=== PATIENT | male | born 1945 | race Caucasian/White ===

== ENCOUNTER → 2018-05-01 | Outpatient (CLI) | payer MEDICARE, OTHER ==
[~2018-05-01] MED LIST: ASPI81CH PO; BENZ100A PO; CIPR500 PO; DEXL60CA3 PO; FINA5 PO; FURO20 PO; HYDMOR2 PO; HYDMOR4 PO; LISI5 PO; LISINOPRIL TAB 10M; Lasix40 MG PO; METF500 PO; METO50 PO; METOPROLOL; METPRE4DP PO; Norco 10-325 T1 EACH PO; ONDA8 PO; OXYB5; SIMV40 PO; Simvastatin40 MG; TAMS.4ER PO; TERA5 PO; Ultram50 MG PO; Zofran Odt4 MG SL; [UNRECOGNIZED DRUG - OTHER]
[2018-05-01 10:17] LABS: Source, Urine Clean Catch
[2018-05-01 12:28] LABS: Bilirubin, Urine Neg (Neg); Blood, Urine 4+ (Neg); Glucose Qualitative, Urine Neg (Neg); Ketones, Urine Neg (Neg); Leukocyte Esterase, Urine 3+ (Neg); Nitrite, Urine Neg (Neg); Protein, Urine 3+ (Neg); Urobilinogen, Urine NORM (Normal)
[2018-05-01 13:10] LABS: Appearance, Urine Cloudy (Clear); Color, Urine Yellow (P-Yellow)
[2018-05-01 13:11] LABS: White Blood Cells, Urine TNTC /hpf (0-5)
[2018-05-01 13:12] LABS: Bacteria Many /hpf; Squamous Epithelial Cells Few /hpf (Few)
== END ==
LOC: LAB 10:10 → LAB SHORT 10:10 → LAB FUT 04-30 18:50 → EDSTATUS 04-30 18:50
PROVIDERS: Nurse Practitioner Adult Health
DX: N39.0 Urinary tract infection, site not specified (principal)
CPT/HCPCS: 81001; 87077; 87086; 87186

== ENCOUNTER → 2018-05-21 | Outpatient (CLI) | payer MEDICARE, OTHER ==
[2018-05-21 10:06] LABS: Appearance, Urine Cloudy (Clear); Bilirubin, Urine Neg (Neg); Blood, Urine 4+ (Neg); Color, Urine Yellow (P-Yellow); Glucose Qualitative, Urine 1+ (Neg); Ketones, Urine Neg (Neg); Leukocyte Esterase, Urine 3+ (Neg); Nitrite, Urine Pos (Neg); Protein, Urine 2+ (Neg); Specific Gravity, Urine 1.025 (1.003-1.022); Urobilinogen, Urine NORM (Normal)
[2018-05-21 10:20] LABS: White Blood Cells, Urine TNTC /hpf (0-5)
[2018-05-21 10:25] LABS: Bacteria Many /hpf; Squamous Epithelial Cells Few /hpf (Few)
== END ==
LOC: LAB 08:15 → LAB SHORT 08:15 → EDSTATUS 05-20 17:50 → LAB FUT 05-20 17:50
PROVIDERS: Nurse Practitioner Adult Health
DX: N30.00 Acute cystitis without hematuria (principal)
CPT/HCPCS: 81001; 87077; 87086; 87186

== ENCOUNTER 2018-12-19 16:12 | Emergency (ER) | payer MEDICARE, OTHER ==
[~2018-12-19] VITALS: Ht 188 cm; Wt 73.9 kg
[2018-12-19] MEDS ORDERED: Norco 5-325 Ta1 EACH PO (17:32)
== END 2018-12-19 17:39 | disposition home or self-care (01) ==
LOC: ER 16:12
DX: S20.211A Contusion of right front wall of thorax, initial encounter (principal); I10 Essential (primary) hypertension; I25.10 Atherosclerotic heart disease of native coronary artery without angina pectoris; Z87.442 Personal history of urinary calculi; E78.5 Hyperlipidemia, unspecified; Z87.891 Personal history of nicotine dependence; Z88.8 Allergy status to other drugs, medicaments and biological substances; Z79.899 Other long term (current) drug therapy; Z79.84 Long term (current) use of oral hypoglycemic drugs; Z79.82 Long term (current) use of aspirin; W01.10XA Fall on same level from slipping, tripping and stumbling with subsequent striking against unspecified object, initial encounter; I70.90 Unspecified atherosclerosis; J44.9 Chronic obstructive pulmonary disease, unspecified
CPT/HCPCS: 71046; 99283-25

== ENCOUNTER 2018-12-26 08:28 | Emergency (ER) | payer MEDICARE, OTHER ==
[~2018-12-26] VITALS: Ht 188 cm; Wt 118.8 kg
[~2018-12-26 08:28] MED LIST changes: +Norco 5-325 Ta1 EACH PO
[2018-12-26] MEDS ORDERED: HYDR1TAB94 PO (08:49)
== END 2018-12-26 08:56 | disposition home or self-care (01) ==
LOC: ER 08:28
DX: R07.81 Pleurodynia (principal); Z88.8 Allergy status to other drugs, medicaments and biological substances; Z79.899 Other long term (current) drug therapy; Z79.84 Long term (current) use of oral hypoglycemic drugs; Z79.82 Long term (current) use of aspirin; I10 Essential (primary) hypertension; I25.10 Atherosclerotic heart disease of native coronary artery without angina pectoris; E78.5 Hyperlipidemia, unspecified; Z87.891 Personal history of nicotine dependence
CPT/HCPCS: 99281

== ENCOUNTER 2019-01-21 09:25 | Emergency (ER) | payer MEDICARE, OTHER ==
[~2019-01-21] VITALS: Ht 188 cm; Wt 119.3 kg
[~2019-01-21 09:25] MED LIST changes: +HYDR1TAB94 PO
[2019-01-21] MEDS ORDERED: Mobic15 MG PO (10:50)
[2019-01-21] MEDS ORDERED: HYDR1TAB94 PO (10:50)
== END 2019-01-21 10:56 | disposition home or self-care (01) ==
LOC: ER 09:25
DX: S43.401A Unspecified sprain of right shoulder joint, initial encounter (principal); W17.89XA Other fall from one level to another, initial encounter; Z88.8 Allergy status to other drugs, medicaments and biological substances; Z79.899 Other long term (current) drug therapy; Z79.84 Long term (current) use of oral hypoglycemic drugs; Z79.82 Long term (current) use of aspirin; I10 Essential (primary) hypertension; I25.10 Atherosclerotic heart disease of native coronary artery without angina pectoris; E78.5 Hyperlipidemia, unspecified; Z87.891 Personal history of nicotine dependence
CPT/HCPCS: 73030; 99283-25

== ENCOUNTER 2019-03-20 11:14 | Emergency (ER) | payer MEDICARE, OTHER ==
[~2019-03-20] VITALS: Ht 188 cm; Wt 117.9 kg
[~2019-03-20 11:14] MED LIST changes: +Mobic15 MG PO
[2019-03-20 11:52] LABS: BASOPHILS ABSOLUTE AUTO 0.08 K/mm3 (0.00-0.23); BASOPHILS PERCENT AUTO 1 % (0-2); EOSINOPHILS ABSOLUTE AUTO 0.38 K/mm3 (0.00-0.68); EOSINOPHILS PERCENT AUTO 3 % (0-6); Hematocrit 41.6 % (37.0-53.0); Hemoglobin 14.1 g/dL (13.5-17.5); IMMATURE GRAN ABSOLUTE AUTO 0.05 K/mm3 (0.00-0.10); IMMATURE GRAN PERCENT AUTO 0 % (0-1); LYMPHOCYTES ABSOLUTE AUTO 1.76 K/mm3 (0.84-5.20); LYMPHOCYTES PERCENT AUTO 15 % (21-46); MONOCYTES ABSOLUTE AUTO 1.07 K/mm3 (0.16-1.47); MONOCYTES PERCENT AUTO 9 % (4-13); Mean Corpuscular HGB 31.2 pg (26.0-34.0); Mean Corpuscular HGB Conc 33.9 g/dL (31.5-36.5); Mean Corpuscular Volume 92 fL (80-100); Mean Platelet Volume 9.1 fL (9.1-12.4); NEUTROPHILS ABSOLUTE AUTO 8.12 K/mm3 (1.96-9.15); NEUTROPHILS PERCENT AUTO 71 % (41-73); Platelet Count 251 K/mm3 (150-400); RDW Coefficient Variation 12.4 % (11.7-14.2); RDW Standard Deviation 42.3 fL (35.1-46.3); Red Blood Cell Count 4.52 M/mm3 (4.30-5.90); White Blood Cell Count 11.46 K/mm3 (4.00-11.30)
[2019-03-20] MEDS ORDERED: ROSUVASTATIN CA20 MG PO (11:52)
[2019-03-20] MEDS ORDERED: TAMSULOSIN HCL0.4 M1 PO (11:52)
[2019-03-20] MEDS ORDERED: CARVEDILOL6.25 MG PO (11:52)
[2019-03-20 12:15] LABS: Alanine Aminotransfer (ALT/SGP 36 U/L (12-78); Albumin, Blood 3.9 g/dL (3.4-5.0); Albumin/Globulin Ratio 1.2 (0.8-1.8); Alk Phos 90 U/L (50-136); Anion Gap 5 mmol/L (6-16); Aspartate Aminotrans (AST/SGOT 19 U/L (12-37); Bilirubin, Total 0.4 mg/dL (0.1-1.0); Blood Urea Nitrogen 31 mg/dL (8-24); Bun/Creatinine Ratio 28.4 (12.0-20.0); CO2, Blood 25 mmol/L (21-32); Calcium, Blood 10.1 mg/dL (8.5-10.1); Chloride, Blood 107 mmol/L (98-108); Creatinine, Blood 1.09 mg/dL (0.60-1.20); Globulin, Blood 3.3 g/dL (2.2-4.0); Glomerular Filtration Rate >60 (60-); Glucose, Blood 175 mg/dL (70-99); Potassium, Blood 4.5 mmol/L (3.5-5.5); Sodium, Blood 137 mmol/L (136-145); Total Protein, Blood 7.2 g/dL (6.4-8.2); Troponin I <0.015 ng/mL (0.000-0.040)
[2019-03-20 13:27] LABS: Source, Urine Clean Catch
[2019-03-20 13:36] LABS: Bilirubin, Urine Neg (Neg); Blood, Urine 5+ (Neg); Glucose Qualitative, Urine Neg (Neg); Ketones, Urine Neg (Neg); Leukocyte Esterase, Urine 3+ (Neg); Nitrite, Urine Pos (Neg); Protein, Urine 2+ (Neg); Specific Gravity, Urine 1.015 (1.003-1.022); Urobilinogen, Urine NORM (Normal)
[2019-03-20 13:54] LABS: Appearance, Urine Cloudy (Clear); Color, Urine Yellow (P-Yellow); Red Blood Cells, Urine TNTC /hpf (0-2); White Blood Cells, Urine TNTC /hpf (0-5)
[2019-03-20 13:55] LABS: Bacteria Mod /hpf; Squamous Epithelial Cells Few /hpf (Few)
[2019-03-20] MEDS ORDERED: Keflex500 MG PO (15:40)
[2019-03-20] MEDS ORDERED: PERCOCET 10-321 EACH PO (15:40)
== END 2019-03-20 17:25 | disposition home or self-care (01) ==
LOC: ER 11:14
PROVIDERS: Internal Medicine
DX: T14.8XXA Other injury of unspecified body region, initial encounter (principal); I25.10 Atherosclerotic heart disease of native coronary artery without angina pectoris; I25.2 Old myocardial infarction; I10 Essential (primary) hypertension; E11.9 Type 2 diabetes mellitus without complications; E78.5 Hyperlipidemia, unspecified; N40.0 Benign prostatic hyperplasia without lower urinary tract symptoms; Z88.8 Allergy status to other drugs, medicaments and biological substances; Z79.899 Other long term (current) drug therapy; Z79.84 Long term (current) use of oral hypoglycemic drugs; Z79.82 Long term (current) use of aspirin; Z87.442 Personal history of urinary calculi; Z95.1 Presence of aortocoronary bypass graft; Z87.891 Personal history of nicotine dependence; X58.XXXA Exposure to other specified factors, initial encounter
CPT/HCPCS: 71046; 80053; 81001; 84484; 85025; 87077; 87086; 87186; 93005; 93010; 96374; 96375; 99285-25; A9270-GY; J1170; J2405; J3010

== ENCOUNTER → 2019-05-12 | Outpatient (CLI) | payer MEDICARE, OTHER ==
[~2019-05-12] MED LIST changes: +CARVEDILOL6.25 MG PO; +Keflex500 MG PO; +PERCOCET 10-321 EACH PO; +ROSUVASTATIN CA20 MG PO; +TAMSULOSIN HCL0.4 M1 PO
[2019-05-12 08:39] LABS: Source, Urine Clean Catch
[2019-05-12 09:41] LABS: Bilirubin, Urine Neg (Neg); Blood, Urine 5+ (Neg); Glucose Qualitative, Urine 2+ (Neg); Ketones, Urine Neg (Neg); Leukocyte Esterase, Urine 3+ (Neg); Nitrite, Urine Neg (Neg); Protein, Urine 2+ (Neg); Urobilinogen, Urine NORM (Normal)
[2019-05-12 09:51] LABS: Appearance, Urine Hazy (Clear); Bacteria Few /hpf; Color, Urine Yellow (P-Yellow); Squamous Epithelial Cells Few /hpf (Few); White Blood Cells, Urine 50-100 /hpf (0-5)
== END | disposition home or self-care (01) ==
LOC: LAB 08:36 → LAB SHORT 08:36 → LAB FUT 01-28 16:20
PROVIDERS: Physician Assistant
DX: R33.9 Retention of urine, unspecified (principal)
CPT/HCPCS: 81001

== ENCOUNTER → 2019-06-11 | Outpatient (CLI) | payer MEDICARE, OTHER | LOC: LAB SHORT 05:00 → LAB 05:00 → LAB FUT 03-12 10:25 | DX: N20.0 Calculus of kidney (principal) | CPT/HCPCS: 81050 ==

== ENCOUNTER → 2019-09-15 | Outpatient (CLI) | payer MEDICARE, OTHER ==
[2019-09-15 10:38] LABS: Source, Urine Clean Catch
[2019-09-15 12:37] LABS: Bilirubin, Urine Neg (Neg); Blood, Urine 5+ (Neg); Glucose Qualitative, Urine Neg (Neg); Ketones, Urine Neg (Neg); Leukocyte Esterase, Urine 3+ (Neg); Nitrite, Urine Neg (Neg); Protein, Urine 2+ (Neg); Specific Gravity, Urine 1.015 (1.003-1.022); Urobilinogen, Urine NORM (Normal)
[2019-09-15 12:49] LABS: Appearance, Urine Cloudy (Clear); Bacteria Few /hpf; Color, Urine Yellow (P-Yellow); Red Blood Cells, Urine TNTC /hpf (0-2); Squamous Epithelial Cells Few /hpf (Few); White Blood Cells, Urine TNTC /hpf (0-5)
== END | disposition home or self-care (01) ==
LOC: LAB SHORT 10:37 → LAB 10:37
PROVIDERS: Physician Assistant
DX: N39.0 Urinary tract infection, site not specified (principal)
CPT/HCPCS: 81001

== ENCOUNTER → 2020-04-22 | Outpatient (CLI) | payer MEDICARE, OTHER ==
[2020-04-22 13:48] LABS: Appearance, Urine Cloudy (Clear); Bilirubin, Urine Neg (Neg); Blood, Urine 5+ (Neg); Color, Urine Yellow (P-Yellow); Glucose Qualitative, Urine Neg (Neg); Ketones, Urine Neg (Neg); Leukocyte Esterase, Urine 3+ (Neg); Nitrite, Urine Neg (Neg); Protein, Urine 2+ (Neg); Specific Gravity, Urine 1.015 (1.003-1.022); Urobilinogen, Urine NORM (Normal)
[2020-04-22 14:33] LABS: Red Blood Cells, Urine TNTC /hpf (0-2); Transitional Epithelial Cells Few /hpf (0-Rare); White Blood Cells, Urine TNTC /hpf (0-5)
[2020-04-22 14:34] LABS: Calcium Oxalate Crystals Few /hpf; Renal Epithelial Rare /hpf (0-Rare); Squamous Epithelial Cells Few /hpf (Few)
[2020-04-22 14:35] LABS: Bacteria Many /hpf
== END | disposition home or self-care (01) ==
LOC: LAB 09:45 → LAB SHORT 09:45
PROVIDERS: Urology
DX: N30.00 Acute cystitis without hematuria (principal)
CPT/HCPCS: 81001; 87077; 87086; 87186

== ENCOUNTER → 2020-07-26 | Outpatient (CLI) | payer MEDICARE, OTHER | END | disposition home or self-care (01) | LOC: LAB SHORT 13:12 | DX: N39.0 Urinary tract infection, site not specified (principal) | CPT/HCPCS: 87077; 87086; 87186 ==

== ENCOUNTER 2021-03-29 09:22 | Emergency (ER) | payer MEDICARE, OTHER ==
[~2021-03-29] VITALS: Ht 188 cm; Wt 113.4 kg
== END 2021-03-29 11:56 | disposition home or self-care (01) ==
LOC: ER 09:22
DX: T78.3XXA Angioneurotic edema, initial encounter (principal); T46.4X5A Adverse effect of angiotensin-converting-enzyme inhibitors, initial encounter; I10 Essential (primary) hypertension; E78.5 Hyperlipidemia, unspecified; E11.9 Type 2 diabetes mellitus without complications; I25.2 Old myocardial infarction; Z79.899 Other long term (current) drug therapy
CPT/HCPCS: 70491; J1100; J1200; Q9967

== ENCOUNTER → 2021-03-29 | Outpatient (CLI) | payer MEDICARE, OTHER ==
[2021-03-29 08:40] LABS: BASOPHILS ABSOLUTE AUTO 0.09 K/mm3 (0.00-0.23); BASOPHILS PERCENT AUTO 1 % (0-2); EOSINOPHILS ABSOLUTE AUTO 0.48 K/mm3 (0.00-0.68); EOSINOPHILS PERCENT AUTO 5 % (0-6); Hematocrit 41.6 % (37.0-53.0); Hemoglobin 14.2 g/dL (13.5-17.5); IMMATURE GRAN ABSOLUTE AUTO 0.03 K/mm3 (0.00-0.10); IMMATURE GRAN PERCENT AUTO 0 % (0-1); LYMPHOCYTES PERCENT AUTO 16 % (21-46); MONOCYTES ABSOLUTE AUTO 0.82 K/mm3 (0.16-1.47); MONOCYTES PERCENT AUTO 9 % (4-13); Mean Corpuscular HGB 30.7 pg (26.0-34.0); Mean Corpuscular HGB Conc 34.1 g/dL (31.5-36.5); Mean Corpuscular Volume 90 fL (80-100); Mean Platelet Volume 9.2 fL (9.1-12.4); NEUTROPHILS ABSOLUTE AUTO 6.41 K/mm3 (1.96-9.15); NEUTROPHILS PERCENT AUTO 69 % (41-73); Platelet Count 231 K/mm3 (150-400); RDW Coefficient Variation 12.9 % (11.7-14.2); RDW Standard Deviation 42.3 fL (35.1-46.3); Red Blood Cell Count 4.62 M/mm3 (4.30-5.90); White Blood Cell Count 9.33 K/mm3 (4.00-11.30)
[2021-03-29 08:55] LABS: Alanine Aminotransfer (ALT/SGP 36 U/L (12-78); Albumin, Blood 3.9 g/dL (3.4-5.0); Albumin/Globulin Ratio 1.3 (0.8-1.8); Alk Phos 88 U/L (40-126); Anion Gap 8 mmol/L (6-16); Aspartate Aminotrans (AST/SGOT 21 U/L (12-37); Bilirubin, Total 0.7 mg/dL (0.1-1.0); Blood Urea Nitrogen 23 mg/dL (8-24); Bun/Creatinine Ratio 20.5 (12.0-20.0); CO2, Blood 27 mmol/L (21-32); Calcium, Blood 10.7 mg/dL (8.5-10.1); Chloride, Blood 104 mmol/L (98-108); Creatinine, Blood 1.12 mg/dL (0.60-1.20); Globulin, Blood 2.9 g/dL (2.2-4.0); Glomerular Filtration Rate >60 (60-); Glucose, Blood 141 mg/dL (70-99); Potassium, Blood 4.9 mmol/L (3.5-5.5); Sodium, Blood 139 mmol/L (136-145); Total Protein, Blood 6.8 g/dL (6.4-8.2)
== END | disposition home or self-care (01) ==
LOC: LAB SHORT 08:30
PROVIDERS: Physician Assistant
DX: J02.9 Acute pharyngitis, unspecified (principal); R13.10 Dysphagia, unspecified
CPT/HCPCS: 80053; 85025

== ENCOUNTER 2021-04-09 12:45 | Observation (INO) | payer MEDICARE, OTHER ==
[~2021-04-09] VITALS: Ht 188 cm; Wt 113.9 kg
[2021-04-09 13:33] LABS: BASOPHILS ABSOLUTE AUTO 0.08 K/mm3 (0.00-0.23); BASOPHILS PERCENT AUTO 1 % (0-2); EOSINOPHILS ABSOLUTE AUTO 0.41 K/mm3 (0.00-0.68); EOSINOPHILS PERCENT AUTO 4 % (0-6); Hematocrit 41.6 % (37.0-53.0); Hemoglobin 14.6 g/dL (13.5-17.5); IMMATURE GRAN ABSOLUTE AUTO 0.08 K/mm3 (0.00-0.10); IMMATURE GRAN PERCENT AUTO 1 % (0-1); LYMPHOCYTES ABSOLUTE AUTO 1.89 K/mm3 (0.84-5.20); LYMPHOCYTES PERCENT AUTO 16 % (21-46); MONOCYTES ABSOLUTE AUTO 0.95 K/mm3 (0.16-1.47); MONOCYTES PERCENT AUTO 8 % (4-13); Mean Corpuscular HGB Conc 35.1 g/dL (31.5-36.5); Mean Corpuscular Volume 88 fL (80-100); Mean Platelet Volume 9.2 fL (9.1-12.4); NEUTROPHILS ABSOLUTE AUTO 8.46 K/mm3 (1.96-9.15); NEUTROPHILS PERCENT AUTO 71 % (41-73); Platelet Count 272 K/mm3 (150-400); RDW Coefficient Variation 12.5 % (11.7-14.2); RDW Standard Deviation 41.1 fL (35.1-46.3); Red Blood Cell Count 4.71 M/mm3 (4.30-5.90); White Blood Cell Count 11.87 K/mm3 (4.00-11.30)
[2021-04-09 13:49] LABS: Anion Gap 8 mmol/L (6-16); Blood Urea Nitrogen 28 mg/dL (8-24); Bun/Creatinine Ratio 23.5 (12.0-20.0); CO2, Blood 24 mmol/L (21-32); Calcium, Blood 10.9 mg/dL (8.5-10.1); Chloride, Blood 104 mmol/L (98-108); Creatinine, Blood 1.19 mg/dL (0.60-1.20); Glomerular Filtration Rate 59 (60-); Glucose, Blood 134 mg/dL (70-99); Potassium, Blood 4.3 mmol/L (3.5-5.5); Sodium, Blood 136 mmol/L (136-145); Troponin I <0.015 ng/mL (0.000-0.040)
--- NOTE | 2021-04-09 17:03 | NUR ---
SHIFT SUMMARY PATIENT ADMITTED FROM ER AT 1600. PATIENT ABLE TO AMBULATE TO BED. PATIENT SETTLED INTO ROOM. TELE ORDERED. PATIENT DENIES CHEST PAIN, NAUSEA, AND SHORTNESS OF BREATH. PATIENT HAS ORDERS FOR STRESS TEST, NPO AT MIDNIGHT. PATIENT IS A&O X4, ABLE TO MAKE NEEDS KNOWN. PATIENT IS EATING AND DRINKING WELL. PATIENT IS PLEASANT AND COOPERATIVE WITH CARE.
--- NOTE | 2021-04-10 06:52 | NUR ---
SHIFT SUMMARY PT IS A 75 Y/O MALE, ADMITTED FOR CP. HE IS A&O X 4, INDEPENDENT IN THE ROOM. PT DENIED ANY C/O CHEST PAIN, NAUSEA OR SOB DURING THE NIGHT. VITAL SIGNS STABLE. TELE SHOWED NSR IN THE 70S. NO ACUTE CHANGES IN PT CONDITION NOTED DURING THE NIGHT. WILL CONTINUE TO MONITOR AND TREAT PER EMAR UNTIL HAND OFF TO DAY SHIFT RN.
[2021-04-10 12:07] LABS: BASOPHILS ABSOLUTE AUTO 0.06 K/mm3 (0.00-0.23); BASOPHILS PERCENT AUTO 1 % (0-2); EOSINOPHILS ABSOLUTE AUTO 0.28 K/mm3 (0.00-0.68); EOSINOPHILS PERCENT AUTO 3 % (0-6); Hematocrit 41.5 % (37.0-53.0); Hemoglobin 14.2 g/dL (13.5-17.5); IMMATURE GRAN ABSOLUTE AUTO 0.05 K/mm3 (0.00-0.10); IMMATURE GRAN PERCENT AUTO 1 % (0-1); LYMPHOCYTES ABSOLUTE AUTO 1.83 K/mm3 (0.84-5.20); LYMPHOCYTES PERCENT AUTO 19 % (21-46); MONOCYTES ABSOLUTE AUTO 0.67 K/mm3 (0.16-1.47); MONOCYTES PERCENT AUTO 7 % (4-13); Mean Corpuscular HGB 30.8 pg (26.0-34.0); Mean Corpuscular HGB Conc 34.2 g/dL (31.5-36.5); Mean Corpuscular Volume 90 fL (80-100); Mean Platelet Volume 9.2 fL (9.1-12.4); NEUTROPHILS ABSOLUTE AUTO 6.73 K/mm3 (1.96-9.15); NEUTROPHILS PERCENT AUTO 70 % (41-73); Platelet Count 250 K/mm3 (150-400); RDW Coefficient Variation 12.9 % (11.7-14.2); RDW Standard Deviation 42.4 fL (35.1-46.3); Red Blood Cell Count 4.61 M/mm3 (4.30-5.90); White Blood Cell Count 9.62 K/mm3 (4.00-11.30)
[2021-04-10 12:16] LABS: Albumin, Blood 3.3 g/dL (3.4-5.0); Anion Gap 6 mmol/L (6-16); Blood Urea Nitrogen 28 mg/dL (8-24); Bun/Creatinine Ratio 25.9 (12.0-20.0); CO2, Blood 28 mmol/L (21-32); Calcium, Blood 10.8 mg/dL (8.5-10.1); Chloride, Blood 102 mmol/L (98-108); Creatinine, Blood 1.08 mg/dL (0.60-1.20); Glomerular Filtration Rate >60 (60-); Glucose, Blood 221 mg/dL (70-99); Potassium, Blood 4.2 mmol/L (3.5-5.5); Sodium, Blood 136 mmol/L (136-145)
--- NOTE | 2021-04-10 18:33 | NUR ---
PT A/O X4, INDEPENDENT IN THE ROOM. NO C/O PAIN THIS SHIFT. STRESS TEST ORDERED, 2 DAY PROTOCOL, FIRST PART DONE TODAY, SECOND PART TO BE COMPLETED TOMORROW EARLY AFTERNOON. WILL CONTINUE TO MONITOR AND REPORT TO ONCOMING RN
--- NOTE | 2021-04-11 05:15 | NUR ---
SHIFT SUMMARY AOX4. VSS. TELE NSR. DENIES CP, DYSPNEA, OR N/V. HAS BEEN NPO EXCEPT WATER SINCE MIDNIGHT FOR 2ND PART STRESS TEST. IND & CONTINENT, ABLE TO MAKE NEEDS KNOWN. CALL LIGHT IN REACH. WCTM UNTIL DAY NURSE ASSUMES CARE.
[2021-04-11 06:19] LABS: Albumin, Blood 3.1 g/dL (3.4-5.0); Anion Gap 7 mmol/L (6-16); Blood Urea Nitrogen 26 mg/dL (8-24); Bun/Creatinine Ratio 23.6 (12.0-20.0); CO2, Blood 26 mmol/L (21-32); Calcium, Blood 10.4 mg/dL (8.5-10.1); Chloride, Blood 106 mmol/L (98-108); Glomerular Filtration Rate >60 (60-); Glucose, Blood 136 mg/dL (70-99); Phosphorus, Blood 2.3 mg/dL (2.5-4.9); Potassium, Blood 4.2 mmol/L (3.5-5.5); Sodium, Blood 139 mmol/L (136-145)
[2021-04-11] MEDS ORDERED: OMEP20ER PO (17:05)
--- NOTE | 2021-04-11 18:33 | NUR ---
DISCHARGE DISCHARGE INSTRUCTIONS, MEDICATION LIST AND FOLLOW UP APPOINTMENTS REVIEWED WITH PT. DR RDZ OFFICE WILL CALL PT CLASSIFICATION ANALYST WAS UNAVAILABLE AT TIME OF DISCHARGE. TELE BOX REMOVED AND RETURNED. PT VERBALLY INDICATED UNDERSTANDING OF ALL INSTRUCTIONS RECEIVED. ESCORTED OUT BY PAPI
== END 2021-04-11 17:30 | disposition home or self-care (01) ==
LOC: ER 12:45 → ERHOLD 12:46 → MEDS 16:00
PROVIDERS: Internal Medicine; Student in an Organized Health Care Education/Training Program; ADMIT Internal Medicine
DX: R07.89 Other chest pain (principal); I25.10 Atherosclerotic heart disease of native coronary artery without angina pectoris; I10 Essential (primary) hypertension; E11.9 Type 2 diabetes mellitus without complications; E83.52 Hypercalcemia; E83.39 Other disorders of phosphorus metabolism; I25.2 Old myocardial infarction; D72.829 Elevated white blood cell count, unspecified; Z95.1 Presence of aortocoronary bypass graft; Z88.8 Allergy status to other drugs, medicaments and biological substances; Z79.84 Long term (current) use of oral hypoglycemic drugs; Z87.891 Personal history of nicotine dependence
CPT/HCPCS: 36415; 70450; 71046; 78452; 80048; 80069; 82306; 84484; 85025; 93005; 93010; 93017; 99285-25; A9270; A9500; G0378; J0706; J2785; J7030

== ENCOUNTER → 2021-11-29 | Outpatient (CLI) | payer MEDICARE, OTHER ==
[~2021-11-29] MED LIST changes: +OMEP20ER PO
== END | disposition home or self-care (01) ==
LOC: LAB SHORT 10:30 → LAB 10:30
DX: R31.9 Hematuria, unspecified (principal)
CPT/HCPCS: 87086

== ENCOUNTER 2024-11-30 08:25 | Emergency (ER) | payer MEDICARE, OTHER ==
[~2024-11-30] VITALS: Ht 188 cm; Wt 104.3 kg
[2024-11-30] MEDS ORDERED: Ketorolac Tromethamine 15mg Vial IV ONE (10:15)
[2024-11-30 10:21] LABS: BASOPHILS ABSOLUTE AUTO 0.09 K/mm3 (0.00-0.23); BASOPHILS PERCENT AUTO 1 % (0-2); EOSINOPHILS ABSOLUTE AUTO 0.26 K/mm3 (0.00-0.68); EOSINOPHILS PERCENT AUTO 3 % (0-6); Hematocrit 44.2 % (37.0-53.0); Hemoglobin 14.9 g/dL (13.5-17.5); IMMATURE GRAN ABSOLUTE AUTO 0.04 K/mm3 (0.00-0.10); IMMATURE GRAN PERCENT AUTO 1 % (0-1); LYMPHOCYTES ABSOLUTE AUTO 1.06 K/mm3 (0.84-5.20); LYMPHOCYTES PERCENT AUTO 12 % (21-46); MONOCYTES ABSOLUTE AUTO 0.47 K/mm3 (0.16-1.47); MONOCYTES PERCENT AUTO 5 % (4-13); Mean Corpuscular HGB Conc 33.7 g/dL (31.5-36.5); Mean Corpuscular Volume 92 fL (80-100); NEUTROPHILS ABSOLUTE AUTO 6.71 K/mm3 (1.96-9.15); NEUTROPHILS PERCENT AUTO 78 % (41-73); NRBC ABSOLUTE 0.00 K/mm3 (0.00-0.02); NRBC Auto 0.0 /100 WBC (0.0-0.2); Platelet Count 235 K/mm3 (150-400); RDW Coefficient Variation 13.1 % (11.7-14.2); RDW Standard Deviation 43.5 fL (35.1-46.3)
[2024-11-30 10:46] LABS: Alanine Aminotransfer (ALT/SGP 23.0 U/L (12-78); Albumin, Blood 3.9 g/dL (3.4-5.0); Albumin/Globulin Ratio 1.2 (0.8-1.8); Anion Gap 6.0 mmol/L (3-11); Aspartate Aminotrans (AST/SGOT 20.0 U/L (12-37); Bilirubin, Total 0.7 mg/dL (0.1-1.0); Blood Urea Nitrogen 19.0 mg/dL (8-24); CO2, Blood 29.0 mmol/L (21-32); Calcium, Blood 10.3 mg/dL (8.5-10.1); Chloride, Blood 106.0 mmol/L (98-108); Creatinine, Blood 0.91 mg/dL (0.60-1.20); Globulin, Blood 3.2 g/dL (2.2-4.0); Glucose, Blood 149.0 mg/dL (70-99); Potassium, Blood 4.4 mmol/L (3.5-5.5); Sodium, Blood 137.0 mmol/L (136-145); Total Protein, Blood 7.1 g/dL (6.4-8.2)
[2024-11-30 10:50] LABS: Source, Urine Clean Catch
[2024-11-30 10:58] LABS: Bilirubin, Urine Neg (Neg); Glucose Qualitative, Urine Neg (Neg); Ketones, Urine Neg (Neg); Leukocyte Esterase, Urine 2+ (Neg); Protein, Urine 1+ (Neg); Specific Gravity, Urine 1.015 (1.003-1.022); Urobilinogen, Urine NORM (Normal)
[2024-11-30] MEDS ORDERED: Ondansetron HCl 2 MG / ML 2ML Vial IV ONE (11:05)
[2024-11-30] MEDS ORDERED: Lidocaine 2% Jelly Uro-Jet UR ONE (11:05)
[2024-11-30] MEDS ORDERED: HYDROmorphone HCl/Pf 1MG SYR IV ONE ×2 (11:05→12:15)
[2024-11-30 11:10] LABS: Color, Urine Yellow (P-Yellow)
[2024-11-30] MEDS ORDERED: Lidocaine 4% 1 Patch TOP ONE (12:15)
[2024-11-30] MEDS ORDERED: OXAYDO5 M1 PO (13:05)
[2024-11-30] MEDS ORDERED: CEPH500 PO (13:18)
[2024-11-30 13:29] VITALS: BP 135/75
== END 2024-11-30 13:29 | disposition home or self-care (01) ==
LOC: ER 08:25
PROVIDERS: Student in an Organized Health Care Education/Training Program
DX: N20.0 Calculus of kidney (principal); R33.9 Retention of urine, unspecified; I10 Essential (primary) hypertension; I25.10 Atherosclerotic heart disease of native coronary artery without angina pectoris; E11.9 Type 2 diabetes mellitus without complications; I25.2 Old myocardial infarction; E78.00 Pure hypercholesterolemia, unspecified; Z95.1 Presence of aortocoronary bypass graft; Z88.8 Allergy status to other drugs, medicaments and biological substances; Z79.84 Long term (current) use of oral hypoglycemic drugs; Z79.82 Long term (current) use of aspirin; Z79.899 Other long term (current) drug therapy
CPT/HCPCS: 51702; 76770; 80053; 81001; 85025; 87077; 87086; 87186; 96374; 96375; 96376; 99284-25; A9270; J1171; J1885; J2405

== ENCOUNTER 2024-12-02 07:32 | Emergency (ER) | payer MEDICARE, OTHER ==
[~2024-12-02] VITALS: Ht 185.4 cm; Wt 106.6 kg
[~2024-12-02 07:32] MED LIST changes: +CEPH500 PO; +OXAYDO5 M1 PO
[2024-12-02] MEDS ORDERED: HYDROmorphone HCl/Pf 1MG SYR IV ONE (08:15)
[2024-12-02 08:47] LABS: BASOPHILS ABSOLUTE AUTO 0.04 K/mm3 (0.00-0.23); BASOPHILS PERCENT AUTO 1 % (0-2); EOSINOPHILS ABSOLUTE AUTO 0.21 K/mm3 (0.00-0.68); EOSINOPHILS PERCENT AUTO 4 % (0-6); Hematocrit 38.2 % (37.0-53.0); Hemoglobin 13.2 g/dL (13.5-17.5); IMMATURE GRAN ABSOLUTE AUTO 0.04 K/mm3 (0.00-0.10); IMMATURE GRAN PERCENT AUTO 1 % (0-1); LYMPHOCYTES ABSOLUTE AUTO 0.72 K/mm3 (0.84-5.20); LYMPHOCYTES PERCENT AUTO 13 % (21-46); MONOCYTES ABSOLUTE AUTO 0.60 K/mm3 (0.16-1.47); MONOCYTES PERCENT AUTO 11 % (4-13); Mean Corpuscular HGB Conc 34.6 g/dL (31.5-36.5); Mean Corpuscular Volume 91 fL (80-100); NEUTROPHILS ABSOLUTE AUTO 4.05 K/mm3 (1.96-9.15); NEUTROPHILS PERCENT AUTO 72 % (41-73); NRBC ABSOLUTE 0.00 K/mm3 (0.00-0.02); NRBC Auto 0.0 /100 WBC (0.0-0.2); Platelet Count 193 K/mm3 (150-400); RDW Coefficient Variation 12.7 % (11.7-14.2); RDW Standard Deviation 41.8 fL (35.1-46.3)
[2024-12-02 09:07] LABS: Alanine Aminotransfer (ALT/SGP 20.0 U/L (12-78); Albumin, Blood 3.4 g/dL (3.4-5.0); Albumin/Globulin Ratio 1.1 (0.8-1.8); Anion Gap 9.0 mmol/L (3-11); Aspartate Aminotrans (AST/SGOT 19.0 U/L (12-37); Bilirubin, Total 0.6 mg/dL (0.1-1.0); Blood Urea Nitrogen 17.0 mg/dL (8-24); CO2, Blood 27.0 mmol/L (21-32); Calcium, Blood 8.8 mg/dL (8.5-10.1); Chloride, Blood 103.0 mmol/L (98-108); Creatinine, Blood 0.83 mg/dL (0.60-1.20); Globulin, Blood 3.0 g/dL (2.2-4.0); Glucose, Blood 149.0 mg/dL (70-99); Magnesium, Blood 1.8 mg/dL (1.6-2.4); Potassium, Blood 4.2 mmol/L (3.5-5.5); Sodium, Blood 135.0 mmol/L (136-145); Total Protein, Blood 6.4 g/dL (6.4-8.2)
[2024-12-02] MEDS ORDERED: Morphine Sulfate 4 MG/1 ML Injection IV ONE (10:20)
[2024-12-02] MEDS ORDERED: OXAYDO5 M1 PO (11:20)
[2024-12-02] MEDS ORDERED: Robaxin750 MG PO (11:20)
[2024-12-02 11:30] VITALS: BP 143/97
== END 2024-12-02 11:56 | disposition home or self-care (01) ==
LOC: ER 07:32
PROVIDERS: Student in an Organized Health Care Education/Training Program
DX: N20.0 Calculus of kidney (principal); S39.012A Strain of muscle, fascia and tendon of lower back, initial encounter; I10 Essential (primary) hypertension; Z88.8 Allergy status to other drugs, medicaments and biological substances; Z79.899 Other long term (current) drug therapy; Z79.84 Long term (current) use of oral hypoglycemic drugs; Z87.891 Personal history of nicotine dependence; Z87.442 Personal history of urinary calculi; X58.XXXA Exposure to other specified factors, initial encounter
CPT/HCPCS: 74177; 80053; 83690; 83735; 85025; 96374-59; 96375; 99285-25; A9270; J1171; J2270; Q9967

== ENCOUNTER 2025-01-06 14:37 | Inpatient (IN) | payer MEDICARE, OTHER ==
[~2025-01-06] VITALS: Ht 188 cm; Wt 106.6 kg
[~2025-01-06 14:37] MED LIST changes: +Robaxin750 MG PO
[2025-01-06] MEDS ORDERED: NS 1,000 ML IV SCH (15:00)
[2025-01-06 15:07] LABS: BASOPHILS ABSOLUTE AUTO 0.05 K/mm3 (0.00-0.23); BASOPHILS PERCENT AUTO 0 % (0-2); EOSINOPHILS ABSOLUTE AUTO 0.04 K/mm3 (0.00-0.68); EOSINOPHILS PERCENT AUTO 0 % (0-6); Hematocrit 37.5 % (37.0-53.0); Hemoglobin 13.2 g/dL (13.5-17.5); IMMATURE GRAN ABSOLUTE AUTO 0.06 K/mm3 (0.00-0.10); IMMATURE GRAN PERCENT AUTO 1 % (0-1); LYMPHOCYTES ABSOLUTE AUTO 0.46 K/mm3 (0.84-5.20); LYMPHOCYTES PERCENT AUTO 4 % (21-46); MONOCYTES ABSOLUTE AUTO 1.43 K/mm3 (0.16-1.47); MONOCYTES PERCENT AUTO 11 % (4-13); Mean Corpuscular HGB Conc 35.2 g/dL (31.5-36.5); Mean Corpuscular Volume 88 fL (80-100); NEUTROPHILS ABSOLUTE AUTO 10.65 K/mm3 (1.96-9.15); NEUTROPHILS PERCENT AUTO 84 % (41-73); NRBC ABSOLUTE 0.00 K/mm3 (0.00-0.02); NRBC Auto 0.0 /100 WBC (0.0-0.2); Platelet Count 191 K/mm3 (150-400); RDW Coefficient Variation 13.0 % (11.7-14.2); RDW Standard Deviation 42.2 fL (35.1-46.3)
[2025-01-06 15:30] LABS: Alanine Aminotransfer (ALT/SGP 25.0 U/L (12-78); Albumin, Blood 3.4 g/dL (3.4-5.0); Albumin/Globulin Ratio 1.0 (0.8-1.8); Anion Gap 7.0 mmol/L (3-11); Aspartate Aminotrans (AST/SGOT 15.0 U/L (12-37); Bilirubin, Total 1.1 mg/dL (0.1-1.0); Blood Urea Nitrogen 21.0 mg/dL (8-24); CO2, Blood 28.0 mmol/L (21-32); Calcium, Blood 10.6 mg/dL (8.5-10.1); Chloride, Blood 102.0 mmol/L (98-108); Creatinine, Blood 0.98 mg/dL (0.60-1.20); Globulin, Blood 3.3 g/dL (2.2-4.0); Glucose, Blood 183.0 mg/dL (70-99); Potassium, Blood 4.1 mmol/L (3.5-5.5); Sodium, Blood 133.0 mmol/L (136-145); Total Protein, Blood 6.7 g/dL (6.4-8.2)
[2025-01-06 16:25] LABS: Source, Urine Foley catheter
[2025-01-06 16:28] LABS: Bilirubin, Urine Neg (Neg); Color, Urine Yellow (P-Yellow); Glucose Qualitative, Urine Neg (Neg); Ketones, Urine Neg (Neg); Leukocyte Esterase, Urine 3+ (Neg); Protein, Urine 3+ (Neg); Specific Gravity, Urine 1.010 (1.003-1.022); Urobilinogen, Urine NORM (Normal)
[2025-01-06 16:41] LABS: Red Blood Cells, Urine TNTC /hpf (0-2); White Blood Cells, Urine TNTC /hpf (0-5)
[2025-01-06] MEDS ORDERED: CefTRIAXone Sodium 1,000 MG in NS 100 ML IV ONE (17:10)
[2025-01-06] MEDS ORDERED: Ondansetron HCl 2 MG / ML 2ML Vial IV PRN (18:30)
[2025-01-06] MEDS ORDERED: FLU VACC TS2025(65UP)/MF59C/PF 45 MCG/0.5 ML SYRINGE IM SCH (18:30)
[2025-01-06] MEDS ORDERED: CefTRIAXone Sodium 1,000 MG in NS 100 ML IV SCH (20:20)
[2025-01-06] MEDS ORDERED: Insulin Human Lispro 100 Units/ML 3ML Syringe SC SCH (21:00)
[2025-01-06] MEDS ORDERED: Lactobacil 2-S.Thermo-Bifido 1 1 Cap PO SCH (21:00)
[2025-01-06] MEDS ORDERED: CYCL10 PO (21:21)
[2025-01-06] MEDS ORDERED: Amlodipine Bes2.5 MG PO (21:22)
[2025-01-06] MEDS ORDERED: DULO30 PO (21:23)
[2025-01-06] MEDS ORDERED: TELM80 PO (21:26)
[2025-01-06 21:33] VITALS: BP 144/72
--- NOTE | 2025-01-06 21:56 | NUR ---
ADMIT NOTE PT ARRIVED TO FLOOR VIA WC. HANDOFF RECEIVED FROM HEAD [facility]. PT ORIENTED TO UNIT. PERSONAL POSSESSIONS WITH PT. CALL BUTTON WITHIN REACH.
[2025-01-06] MEDS ORDERED: Metoclopramide HCl 5MG / ML 2ML Vial IV ONE (23:30)
--- NOTE | 2025-01-07 00:39 | NUR ---
CRITICAL LAB VALUE NOTIFIED LACTIC ACID 2.6 DOWN FROM 2.9 PROVIDER NOTIFIED
[2025-01-07] MEDS ORDERED: NS 1,000 ML IV SCH (01:00)
--- NOTE | 2025-01-07 04:04 | NUR ---
SHIFT SUMMARY ADMITTED FOR UTI/SEPSIS. FULL CODE. IV FLUID INFUSING. IV ANTIB RX SCHEDULED. HX OF GLF'S. A&O X2 - SEEMS CONFUSED, IMPULSIVE. CHRONIC LEE, CHANGED IN ER. BLOOD CULTURES SENT TO MICRO. ADA DIET. ON RA. ACHS CBG'S - LOW SS. ONE TIME DOSE REGLAN GIVEN FOR NAUSEA. LIVES ALONE.
[2025-01-07 06:41] VITALS: BP 110/41
[2025-01-07 06:46] LABS: BASOPHILS ABSOLUTE AUTO 0.06 K/mm3 (0.00-0.23); BASOPHILS PERCENT AUTO 0 % (0-2); EOSINOPHILS ABSOLUTE AUTO 0.00 K/mm3 (0.00-0.68); EOSINOPHILS PERCENT AUTO 0 % (0-6); Hematocrit 36.4 % (37.0-53.0); Hemoglobin 12.4 g/dL (13.5-17.5); IMMATURE GRAN ABSOLUTE AUTO 0.08 K/mm3 (0.00-0.10); IMMATURE GRAN PERCENT AUTO 1 % (0-1); LYMPHOCYTES ABSOLUTE AUTO 1.24 K/mm3 (0.84-5.20); LYMPHOCYTES PERCENT AUTO 9 % (21-46); MONOCYTES ABSOLUTE AUTO 1.82 K/mm3 (0.16-1.47); MONOCYTES PERCENT AUTO 13 % (4-13); Mean Corpuscular HGB Conc 34.1 g/dL (31.5-36.5); Mean Corpuscular Volume 92 fL (80-100); NEUTROPHILS ABSOLUTE AUTO 11.28 K/mm3 (1.96-9.15); NEUTROPHILS PERCENT AUTO 78 % (41-73); NRBC ABSOLUTE 0.00 K/mm3 (0.00-0.02); NRBC Auto 0.0 /100 WBC (0.0-0.2); Platelet Count 175 K/mm3 (150-400); RDW Coefficient Variation 13.1 % (11.7-14.2); RDW Standard Deviation 43.0 fL (35.1-46.3)
[2025-01-07 07:19] LABS: Alanine Aminotransfer (ALT/SGP 23.0 U/L (12-78); Albumin, Blood 3.0 g/dL (3.4-5.0); Albumin/Globulin Ratio 0.9 (0.8-1.8); Anion Gap 7.0 mmol/L (3-11); Aspartate Aminotrans (AST/SGOT 27.0 U/L (12-37); Bilirubin, Total 1.0 mg/dL (0.1-1.0); Blood Urea Nitrogen 21.0 mg/dL (8-24); CO2, Blood 28.0 mmol/L (21-32); Calcium, Blood 10.0 mg/dL (8.5-10.1); Chloride, Blood 101.0 mmol/L (98-108); Creatinine, Blood 1.09 mg/dL (0.60-1.20); Globulin, Blood 3.4 g/dL (2.2-4.0); Glucose, Blood 153.0 mg/dL (70-99); Potassium, Blood 4.5 mmol/L (3.5-5.5); Sodium, Blood 131.0 mmol/L (136-145); Total Protein, Blood 6.4 g/dL (6.4-8.2)
[2025-01-07 07:35] VITALS: BP 122/48
[2025-01-07] MEDS ORDERED: Enoxaparin 40 MG/0.4 ML SYR SC SCH (09:00)
[2025-01-07 15:05] VITALS: BP 106/59
--- NOTE | 2025-01-07 17:57 | NUR ---
SHIFT SUMMARY PATIENT IS A&OX3-4, ANXIOUS TODAY. OVERESTIMATES HIS OWN ABILITY AND REFUSED WALKER TO AMBULATE BUT IS CALLING BEFORE GETTING UP. CODE STATUS CHANGED FROM FC TO DNR TODAY, WRIST BAND PLACED ON RIGHT WRIST. NOT COMPLAINING OF ANY PAIN. ON ROOM AIR. COOPERATIVE WITH CARE. CURRENTLY RESTING IN BED WITH BED IN LOWEST POSITION, BED ALARM ARMED. CALL LIGHT WITHIN REACH.
[2025-01-07 19:55] VITALS: BP 126/61
[2025-01-07] MEDS ORDERED: CefTRIAXone Sodium 1,000 MG in NS 100 ML IV SCH (21:00)
[2025-01-07] MEDS ORDERED: NS 250 ML IV PRN (23:45)
--- NOTE | 2025-01-08 04:55 | NUR ---
SHIFT SUMMARY; PT A/O X3 (PERSON, PLACE, SELF), COOPERATIVE WITH CARE, AND FORGETS LIMITATIONS. PT HAD FEVER OF 101.7 AT 1930 VITAL CHECK. TYLENOL 650MG PO GIVEN. FEVER REDUCED TO 99.2. PT REQUESTING MEDICATION TO ASSIST W/ SLEEP. BLANQUITA PATEL PAGED AND NOTIFIED, MELATONIN 6MG PO HS ORDERED. L IV D/C DUE TO LEAKAGE DURING FLUSH. R HAND IV PLACED. PT MEDICATED W/ SCHEDULED ANTIBIOTICS. PT REPORTED BEING VERY COLD AND STARTED SHIVERING AROUND 0200, ASKING FOR A WARM BLANKET. TEMPERATURE RECHECKED, PT HAD FEVER OF 101.1. TYLENOL WAS GIVEN AT 0215, WHICH AGAIN REDUCED TEMPERATURE TO 100.1. PT NO LONGER HAD COMPLAINTS OF BEING COLD OR SHIVERING. PT REQUESTED TO SIT UP IN CHAIR. THIS RN ASSISTED PT TO CHAIR, AND INCREASED WEAKNESS NOTED UPON STAND AND PIVOT. VSS. CALL LIGHT WITHIN REACH AND BED IN LOW POSITION.
[2025-01-08 05:15] VITALS: BP 135/65
[2025-01-08 06:02] LABS: BASOPHILS ABSOLUTE AUTO 0.03 K/mm3 (0.00-0.23); BASOPHILS PERCENT AUTO 0 % (0-2); EOSINOPHILS ABSOLUTE AUTO 0.01 K/mm3 (0.00-0.68); EOSINOPHILS PERCENT AUTO 0 % (0-6); Hematocrit 32.7 % (37.0-53.0); Hemoglobin 11.4 g/dL (13.5-17.5); IMMATURE GRAN ABSOLUTE AUTO 0.03 K/mm3 (0.00-0.10); IMMATURE GRAN PERCENT AUTO 0 % (0-1); LYMPHOCYTES ABSOLUTE AUTO 0.55 K/mm3 (0.84-5.20); LYMPHOCYTES PERCENT AUTO 5 % (21-46); MONOCYTES ABSOLUTE AUTO 1.43 K/mm3 (0.16-1.47); MONOCYTES PERCENT AUTO 13 % (4-13); Mean Corpuscular HGB Conc 34.9 g/dL (31.5-36.5); Mean Corpuscular Volume 89 fL (80-100); NEUTROPHILS ABSOLUTE AUTO 8.67 K/mm3 (1.96-9.15); NEUTROPHILS PERCENT AUTO 81 % (41-73); NRBC ABSOLUTE 0.00 K/mm3 (0.00-0.02); NRBC Auto 0.0 /100 WBC (0.0-0.2); Platelet Count 172 K/mm3 (150-400); RDW Coefficient Variation 12.9 % (11.7-14.2); RDW Standard Deviation 42.5 fL (35.1-46.3)
[2025-01-08] MEDS ORDERED: Cefepime HCl 2,000 MG in NS 100 ML IV SCH (08:30)
[2025-01-08 08:35] VITALS: BP 158/99
[2025-01-08 12:59] LABS: Anion Gap 9.0 mmol/L (3-11); Blood Urea Nitrogen 24.0 mg/dL (8-24); CO2, Blood 26.0 mmol/L (21-32); Calcium, Blood 9.7 mg/dL (8.5-10.1); Chloride, Blood 97.0 mmol/L (98-108); Creatinine, Blood 1.15 mg/dL (0.60-1.20); Glucose, Blood 157.0 mg/dL (70-99); Potassium, Blood 3.8 mmol/L (3.5-5.5); Sodium, Blood 128.0 mmol/L (136-145)
[2025-01-08 15:56] VITALS: BP 127/74
--- NOTE | 2025-01-08 18:28 | NUR ---
End of shift summary: Patient is alert and oriented x2-3; bouts of forgetfulness. Patient with some c/o nausea today, but able to eat cheese and crackers without difficulty after lunch. Patient denied SOB, CP today but did have c/o pain and medicated per EMAR with good relief noted; also utilizing heating pad with good relief. All medications administered per EMAR. No acute changes this shift. Patient utilizing call light appropriately; call light within reach and bed in lowest position; bed alarm in place for patient safety. Will continue to monitor until next shift nurse arrives and report is given.
[2025-01-08 20:03] VITALS: BP 125/93
[2025-01-09 04:38] VITALS: BP 137/76
--- NOTE | 2025-01-09 04:55 | NUR ---
SHIFT SUMMARY NOC PT A/O X 3-4. PLEASANT AND COOPERATIVE WITH CARE. VSS. HS CBG 190 WITH CNI. PT GIVEN MELATONIN AND VISTARIL FOR SLEEP AND ANXIETY, BUT PT HAD C/O OF STILL HAVING BOTH AFTER TAKING MEDS. HOSPITALIST NOTIFIED AND ONE TIME ORDER FOR TRAZADONE 50 MG OBTAINED, BUT PT WAS SLEEPING SOUNDLY WHEN RX WAS TO BE GIVEN SO IT WAS NOT PULLED. PT HAS LEE IN PLACE DRAINING YELLOW URINE TO GRAVITY. IV ABX PER EMAR. PT CURRENTLY RESTING WITH BED IN LOWEST POSITION, AND CALL LIGHT WITHIIN REACH.
[2025-01-09] MEDS ORDERED: DEXTROMETHORPHAN/BENZOCAINE 1 EACH LOZENGE MT PRN (06:20)
[2025-01-09 06:27] LABS: BASOPHILS ABSOLUTE AUTO 0.03 K/mm3 (0.00-0.23); BASOPHILS PERCENT AUTO 1 % (0-2); EOSINOPHILS ABSOLUTE AUTO 0.12 K/mm3 (0.00-0.68); EOSINOPHILS PERCENT AUTO 2 % (0-6); Hematocrit 32.9 % (37.0-53.0); Hemoglobin 11.6 g/dL (13.5-17.5); IMMATURE GRAN ABSOLUTE AUTO 0.01 K/mm3 (0.00-0.10); IMMATURE GRAN PERCENT AUTO 0 % (0-1); LYMPHOCYTES ABSOLUTE AUTO 0.87 K/mm3 (0.84-5.20); LYMPHOCYTES PERCENT AUTO 14 % (21-46); MONOCYTES ABSOLUTE AUTO 0.96 K/mm3 (0.16-1.47); MONOCYTES PERCENT AUTO 15 % (4-13); Mean Corpuscular HGB Conc 35.3 g/dL (31.5-36.5); Mean Corpuscular Volume 89 fL (80-100); NEUTROPHILS ABSOLUTE AUTO 4.35 K/mm3 (1.96-9.15); NEUTROPHILS PERCENT AUTO 69 % (41-73); NRBC ABSOLUTE 0.00 K/mm3 (0.00-0.02); NRBC Auto 0.0 /100 WBC (0.0-0.2); Platelet Count 165 K/mm3 (150-400); RDW Coefficient Variation 12.8 % (11.7-14.2); RDW Standard Deviation 41.9 fL (35.1-46.3)
[2025-01-09 06:53] LABS: Alanine Aminotransfer (ALT/SGP 27.0 U/L (12-78); Albumin, Blood 2.4 g/dL (3.4-5.0); Albumin/Globulin Ratio 0.7 (0.8-1.8); Anion Gap 8.0 mmol/L (3-11); Aspartate Aminotrans (AST/SGOT 26.0 U/L (12-37); Bilirubin, Total 0.6 mg/dL (0.1-1.0); Blood Urea Nitrogen 24.0 mg/dL (8-24); CO2, Blood 25.0 mmol/L (21-32); Calcium, Blood 9.9 mg/dL (8.5-10.1); Chloride, Blood 101.0 mmol/L (98-108); Creatinine, Blood 1.0 mg/dL (0.60-1.20); Globulin, Blood 3.4 g/dL (2.2-4.0); Glucose, Blood 131.0 mg/dL (70-99); Potassium, Blood 3.5 mmol/L (3.5-5.5); Sodium, Blood 130.0 mmol/L (136-145); Total Protein, Blood 5.8 g/dL (6.4-8.2)
[2025-01-09 07:23] VITALS: BP 123/71
[2025-01-09] MEDS ORDERED: Ampicillin Sod 2,000 MG in NS 100 ML IV SCH (10:00)
[2025-01-09 16:14] VITALS: BP 121/70
--- NOTE | 2025-01-09 17:11 | NUR ---
SHIFT SUMMARY PATIENT IS A&OX4, IMPULSIVE WITH MOVEMENTS AND WALKING. PER PT VERY UNSTABLE ON HIS FEET. HE IS ON RA AND DOES NOT HAVE TELE. DR. PHAM ADVISED PATIENT WILL BE ADMITTED WITH ROUND THE CLOCK ANTIBIOTICS UNTIL SATURDAY FOR NEWLY DISCOVERED BACTERIAL INFECTION IN THE URINE.
--- NOTE | 2025-01-09 18:12 | NUR ---
ORIENTING NURSE DOCUMENTATION REVIEW: THIS RN HAS PERSONALLY REVIEWED DOCUMENTATION AND OVERSAW TREATMENTS AND CARE PROVIDED BY ORIENTING NURSECANDELARIA.
[2025-01-09 20:06] VITALS: BP 148/84
[2025-01-10 04:44] VITALS: BP 141/83
--- NOTE | 2025-01-10 05:45 | NUR ---
SHIFT SUMMARY PT IS ALERT AND ORIENTED TIMES 4 . PT ADMITTED FOR SEPSIS DUE TO UTI. PT IS DNR. PT HAS CHRONIC LEE THAT DRAINS TO GRAVITY. PT IS ON ROOM AIR. PT IS RECEPTIVE TO CARE AND APPEARED TO SLEEP THROUGH THE NIGHT WITHOUT ISSUE. CALL LIGHT WITHIN REACH, RAILS TIMES 2, BED IN LOW POSITION.
[2025-01-10 07:39] VITALS: BP 125/79
[2025-01-10 15:24] VITALS: BP 130/88
--- NOTE | 2025-01-10 17:20 | NUR ---
End of shift summary: Patient is alert and oriented x4; pleasant and cooperative with care. Patient up in room throughout the day and ambulating with walker. Patient denied CP, SOB, N/V/D or pain today. All medications administered per EMAR. Patient with Rodriguez catheter in place draining light rajani urine. Patient excited about probability of being discharged home tomorrow. Utilizing call light appropriately; call light within reach and bed in lowest position. Will continue to monitor until next shift nurse arrives and report is given.
[2025-01-10 19:52] VITALS: BP 124/95
[2025-01-11 03:52] VITALS: BP 131/79
--- NOTE | 2025-01-11 04:52 | NUR ---
SHIFT SUMMARY 79 YR M ADMITTED ON 01/06/25. DNR. NO ACUTE CHANGES THIS SHIFT. PT STATED HE IS FEELING MUCH BETTER BUT DID REQUEST TYLENOL FOR ACHES STATING THAT OUR BEDS ARE UNCOMFORTABLE. HE IS A&O X 4 AND CALLS APPROPRIATELY FOR ASSISTANCE. HE STATES HE IS EXCITED TO GO HOME. NO NEW CHANGES TO REPORT. BED IN LOW POSITION AND CALL LIGHT IN REACH.
[2025-01-11 07:20] VITALS: BP 151/80
[2025-01-11 11:40] LABS: BASOPHILS ABSOLUTE AUTO 0.06 K/mm3 (0.00-0.23); BASOPHILS PERCENT AUTO 1 % (0-2); EOSINOPHILS ABSOLUTE AUTO 0.43 K/mm3 (0.00-0.68); EOSINOPHILS PERCENT AUTO 5 % (0-6); Hematocrit 34.7 % (37.0-53.0); Hemoglobin 12.0 g/dL (13.5-17.5); IMMATURE GRAN ABSOLUTE AUTO 0.06 K/mm3 (0.00-0.10); IMMATURE GRAN PERCENT AUTO 1 % (0-1); LYMPHOCYTES ABSOLUTE AUTO 1.22 K/mm3 (0.84-5.20); LYMPHOCYTES PERCENT AUTO 15 % (21-46); MONOCYTES ABSOLUTE AUTO 1.02 K/mm3 (0.16-1.47); MONOCYTES PERCENT AUTO 13 % (4-13); Mean Corpuscular HGB Conc 34.6 g/dL (31.5-36.5); Mean Corpuscular Volume 88 fL (80-100); NEUTROPHILS ABSOLUTE AUTO 5.37 K/mm3 (1.96-9.15); NEUTROPHILS PERCENT AUTO 66 % (41-73); NRBC ABSOLUTE 0.00 K/mm3 (0.00-0.02); NRBC Auto 0.0 /100 WBC (0.0-0.2); Platelet Count 219 K/mm3 (150-400); RDW Coefficient Variation 12.9 % (11.7-14.2); RDW Standard Deviation 41.6 fL (35.1-46.3)
[2025-01-11 12:02] LABS: Anion Gap 8.0 mmol/L (3-11); Blood Urea Nitrogen 18.0 mg/dL (8-24); CO2, Blood 27.0 mmol/L (21-32); Calcium, Blood 10.0 mg/dL (8.5-10.1); Chloride, Blood 105.0 mmol/L (98-108); Creatinine, Blood 0.83 mg/dL (0.60-1.20); Glucose, Blood 146.0 mg/dL (70-99); Potassium, Blood 4.0 mmol/L (3.5-5.5); Sodium, Blood 136.0 mmol/L (136-145)
--- NOTE | 2025-01-11 12:31 | NUR ---
DISCHARGE NOTE 1228 DISCHARGE INSTRUCTIONS AND EDUCATION REVIEWED WITH PATIENT. PATIENT WAS ABLE TO VERBALIZE TEACHING BACK TO THIS RN. VASCULAR DEVICE REMOVED WITH INTACT CATHETER. PATIENT RIDE WITH DAUGHTER CANDELARIA, PATIENT LEFT IN WHEELCHAIR WITH ALL OF HIS BELONGINGS AND IN A STABLE CONDITION.
== END 2025-01-11 12:27 | disposition home health service (06) | DRG 698 ==
LOC: ER 14:37 → MEDS 18:26
PROVIDERS: Emergency Medicine; ADMIT Family Medicine
DX: T83.511A Infection and inflammatory reaction due to indwelling urethral catheter, initial encounter (principal); A41.51 Sepsis due to Escherichia coli [E. coli]; R65.20 Severe sepsis without septic shock; G93.41 Metabolic encephalopathy; E87.21 Acute metabolic acidosis; Y84.6 Urinary catheterization as the cause of abnormal reaction of the patient, or of later complication, without mention of misadventure at the time of the procedure; M54.9 Dorsalgia, unspecified; G89.29 Other chronic pain; I25.10 Atherosclerotic heart disease of native coronary artery without angina pectoris; I10 Essential (primary) hypertension; B95.2 Enterococcus as the cause of diseases classified elsewhere; N39.0 Urinary tract infection, site not specified; R33.9 Retention of urine, unspecified; Z95.1 Presence of aortocoronary bypass graft; F41.9 Anxiety disorder, unspecified; Z87.442 Personal history of urinary calculi; I25.2 Old myocardial infarction; Z98.890 Other specified postprocedural states; Z87.891 Personal history of nicotine dependence; Z88.8 Allergy status to other drugs, medicaments and biological substances; Z79.82 Long term (current) use of aspirin; Z79.84 Long term (current) use of oral hypoglycemic drugs; Z79.899 Other long term (current) drug therapy
CPT/HCPCS: 36415; 36416; 51702; 80048; 80053; 81001; 82947; 83605; 84484; 85025; 87040; 87077; 87086; 87186; 93005; 93010; 96360-59; 97110; 97116; 97161; 97165; 97530; 97535; 99285-25; A9270; J0290; J0692; J0696; J1650; J2405; J2765; J7030; J7050; Q0177